=== PATIENT | male | born 1960 | race Caucasian/White ===

== ENCOUNTER 2016-08-13 14:03 | Emergency (ER) | payer OTHER ==
[~2016-08-13] VITALS: Ht 172.7 cm; Wt 86.2 kg
[~2016-08-13 14:03] MED LIST: ERYTHROMYCIN5 MG/GM OPH
[2016-08-13] MEDS ORDERED: PROAIR HFA8.5 GM INH (16:52)
[2016-08-13] MEDS ORDERED: OXYCODONE-ACET1 EACH PO (16:52)
[2016-08-13] MEDS ORDERED: ADVAIR 250-501 EACH INH (16:52)
[2016-08-13] MEDS ORDERED: MULTI-DAY VITA1 EACH PO (16:53)
[2016-08-13] MEDS ORDERED: ALBUTEROL2.5 MG/3 M INH/SOL (16:53)
[2016-08-13] MEDS ORDERED: QUALAQUIN324 MG PO (16:53)
[2016-08-13] MEDS ORDERED: GLUCOSAMINE CH1 EAC6 PO (16:54)
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
--- NOTE | 2016-08-13 19:01 | CT SCAN REPORT ---
EXAMINATION: CT HEAD, CERVICAL SPINE AND LUMBAR WITHOUT CONTRAST CLINICAL INFORMATION: Status post fall in shower yesterday. Hit head and back. COMPARISON: None. TECHNIQUE: Contiguous axial imaging was performed from the thoracic inlet to the vertex without intravenous administration of contrast. Additionally, images of the lumbar spine were performed without intravenous contrast. 2-D coronal and sagittal reformatted images of the cervical and lumbar spine was performed. DLP: 1489 mGy-cm. FINDINGS: Head: No acute intracranial abnormality. No acute intracranial hemorrhage, mass or mass effect or abnormal extra-axial fluid collections. The density within the dural venous sinuses is within normal limits. The ventricles are normal in size, without hydrocephalus. There are no focal areas of hypoattenuation within a vascular distribution to suggest acute transcortical ischemia. The basilar cisterns are patent. No acute calvarial abnormality is identified. Soft tissues appear unremarkable. Evaluation of the paranasal sinuses demonstrates moderate mucosal thickening of the imaged maxillary sinuses as well as the anterior and posterior ethmoid air cells. There is also moderate mucosal thickening of the right sphenoid sinus. The mastoid air cells are well aerated. Cervical spine: No acute cervical spine fractures or subluxations. Mild to moderate multilevel degenerative changes of the cervical spine, notably at C5-C6 and C6-C7. Vertebral body heights are grossly preserved. The atlantoaxial and craniocervical junctions are intact. Prevertebral soft tissues are within normal limits. The included bilateral lung apices are clear. Lumbar spine: Noncontrast CT of the lumbar spine demonstrates an acute nondisplaced fracture involving the right transverse process of L2 no additional fractures of the lumbar spine are identified. Vertebral body heights are maintained. There are mild degenerative changes of the lumbar spine with intervertebral disc height loss, notably at the lumbosacral junction. No acute fracture or subluxation of the lumbar spine is identified. Paravertebral soft tissues appear unremarkable. IMPRESSION: 1. No acute intracranial abnormality. 2. No acute cervical spine fracture or subluxation. 3. Acute nondisplaced fracture involving the right transverse process of L2. No additional lumbar spine fractures are identified. Lumbar vertebral body heights are grossly preserved. There are mild multilevel degenerative changes of the lumbar spine.
[2016-08-13 19:38] VITALS: BP 122/80
[2016-08-13] MEDS ORDERED: CYCLOBENZAPRINE10 M1 PO (19:50)
[2016-08-13] MEDS ORDERED: IBUPROFEN600 M1 PO (19:50)
== END 2016-08-13 20:35 ==
LOC: ERH 14:03
DX: S32.029A Unspecified fracture of second lumbar vertebra, initial encounter for closed fracture (principal); W18.2XXA Fall in (into) shower or empty bathtub, initial encounter; Y92.002 Bathroom of unspecified non-institutional (private) residence as the place of occurrence of the external cause; Y93.E1 Activity, personal bathing and showering